=== PATIENT | male | born 1960 | race Caucasian/White ===

== ENCOUNTER 2018-03-11 20:03 | Emergency (ER) | payer MEDICAID ==
[~2018-03-11] VITALS: Ht 180.3 cm; Wt 95.2 kg
[~2018-03-11 20:03] MED LIST: NO HOME MEDS
[2018-03-11 20:05] VITALS: BP 133/87
[2018-03-11] MEDS ORDERED: TETanus/Pertussis (Acell)/Diphther VAC/PF (Tdap-Adult) 0.5ml syringe IM ONE (21:50)
== END 2018-03-11 22:12 | disposition home or self-care (01) ==
LOC: ER 20:03
DX: S01.112A Laceration without foreign body of left eyelid and periocular area, initial encounter (principal); I10 Essential (primary) hypertension; K21.9 Gastro-esophageal reflux disease without esophagitis; J45.909 Unspecified asthma, uncomplicated; F12.90 Cannabis use, unspecified, uncomplicated; Y04.2XXA Assault by strike against or bumped into by another person, initial encounter; Y93.89 Activity, other specified; Y92.89 Other specified places as the place of occurrence of the external cause; Y99.8 Other external cause status
CPT/HCPCS: 12013; 90471; 90715; 99283

== ENCOUNTER 2019-04-27 13:09 | Emergency (ER) | payer MEDICAID ==
[~2019-04-27] VITALS: Ht 177.8 cm; Wt 100.0 kg
[2019-04-27 13:52] LABS: BASOPHILS # (AUTO) 0.1 X10'3 (0-0.2); BASOPHILS % (AUTO) 1.3 % (0-1); EOSINOPHILS # (AUTO) 0.1 X10'3 (0-0.9); EOSINOPHILS % (AUTO) 2.2 % (0-6); HEMATOCRIT 42.9 % (42.0-52.0); HEMOGLOBIN 14.9 g/dl (14.0-17.9); LYMPHOCYTES # (AUTO) 1.5 X10'3 (1.1-4.8); LYMPHOCYTES % (AUTO) 27.3 % (21-51); MEAN CORPUSCULAR HEMOGLOBIN 33.6 PG (27.0-31.0); MEAN CORPUSCULAR HGB CONC 34.7 g/dL (33.0-36.5); MEAN CORPUSCULAR VOLUME 96.9 FL (78-98); MEAN PLATELET VOLUME 7.6 FL (7.4-10.4); MONOCYTES # (AUTO) 0.3 X10'3 (0-0.9); MONOCYTES % (AUTO) 4.7 % (2-12); NEUTROPHILS # (AUTO) 3.5 X10'3 (1.8-7.7); NEUTROPHILS % (AUTO) 64.5 % (42-75); PLATELET COUNT 98 X10'3 (140-440); RED BLOOD COUNT 4.43 X10'6 (4.70-6.10); RED CELL DISTRIBUTION WIDTH 13.6 % (11.5-14.5); WHITE BLOOD COUNT 5.4 X10'3 (4.5-11.0)
[2019-04-27 14:17] LABS: ALANINE AMINOTRANSFERASE 138 U/L (12-78); ALBUMIN 3.9 G/DL (3.4-5.0); ALKALINE PHOSPHATASE 172 IU/L (46-116); ANION GAP 12 (8-16); ASPARTATE AMINO TRANSFERASE 187 U/L (10-37); BILIRUBIN,TOTAL 0.9 MG/DL (0.1-1.0); BLOOD UREA NITROGEN 7 MG/DL (7-18); CALCIUM 8.9 MG/DL (8.5-10.1); CHLORIDE 103 MMOL/L (99-107); CREATININE 0.88 MG/DL (0.60-1.10); GLUCOSE 125 MG/DL (70-104); LIPASE 70 U/L (73-393); POTASSIUM 3.7 MMOL/L (3.5-5.1); SODIUM 140 MMOL/L (135-145); TOTAL CARBON DIOXIDE 24.7 MMOL/L (24-32); TOTAL PROTEIN 7.7 G/DL (6.4-8.2); eGFR 89 ML/MIN
[2019-04-27 15:54] LABS: PARTIAL THROMBOPLASTIN TIME 30 SECONDS (22-32)
[2019-04-27] MEDS ORDERED: ondansetron/PF 4mg/2ml inj IV ONE (16:30)
[2019-04-27] MEDS ORDERED: pantoprazole 40 MG vial IV ONE (16:30)
[2019-04-27] MEDS ORDERED: LORazepam 2 mg/ml vial IV ONE (16:30)
[2019-04-27] MEDS ORDERED: morphine 4 MG/ML inj SYRINge IV ONE (16:30)
[2019-04-27 16:32] LABS: CLARITY,URINE SLIGHTLY CLOUDY (Clear); COLOR,URINE DARK YELLOW (Yellow); GLUCOSE, URINE NEGATIVE (Neg); KETONES,URINE NEGATIVE (Neg); LEUKOCYTE ESTERASE ,URINE TRACE (Neg); NITRITES, URINE NEGATIVE (Neg); OCCULT BLOOD,URINE NEGATIVE (Neg); PROTEIN,URINE TRACE mg/dl (Neg); UA COLLECTION TYPE CLN CATCH MIDSTREAM
[2019-04-27 16:45] LABS: MUCUS STRANDS MODERATE /LPF (Neg); SQUAMOUS EPITHELIAL CELL,UR FEW /LPF (FEW)
[2019-04-27 16:46] LABS: BACTERIA,URINE FEW /HPF (Neg)
[2019-04-27 16:47] LABS: RBC,URINE 0-2 /HPF (0-2); WBC,URINE 0-4 /HPF (0-4)
[2019-04-27 17:50] LABS: ETHANOL 0.303 GM/DL (0.0-0.010)
[2019-04-27] MEDS ORDERED: normal saline 1000ML IV soln IVB ONE (18:45)
[2019-04-27] MEDS ORDERED: RANI-366 PO (20:11)
[2019-04-27] MEDS ORDERED: DOXY100C43 PO (20:11)
[2019-04-27 20:30] VITALS: BP 134/84
== END 2019-04-27 20:39 | disposition home or self-care (01) ==
LOC: ER 13:10
DX: R10.84 Generalized abdominal pain (principal); I86.8 Varicose veins of other specified sites; R16.1 Splenomegaly, not elsewhere classified; F10.10 Alcohol abuse, uncomplicated; K76.6 Portal hypertension; K70.0 Alcoholic fatty liver; I10 Essential (primary) hypertension; J44.9 Chronic obstructive pulmonary disease, unspecified; K21.9 Gastro-esophageal reflux disease without esophagitis; F17.200 Nicotine dependence, unspecified, uncomplicated; F12.90 Cannabis use, unspecified, uncomplicated; Z79.899 Other long term (current) drug therapy; Y90.0 Blood alcohol level of less than 20 mg/100 ml
CPT/HCPCS: 36415; 74176; 80053; 80320; 81001; 83690; 85025; 85610; 85730; 87077; 87088; 87186; 96374; 96375; 99284; C9113; J2060; J2270; J2405; J7030

== ENCOUNTER 2020-05-29 09:54 | Day surgery (SDC) | payer MEDICAID ==
[2020-05-21 12:36] LABS: PRE OP INR 1.1 INR; PRE OP PROTIME 10.9 SECONDS (9.0-12.0)
[2020-05-21 12:40] LABS: ALBUMIN 4.1 G/DL (3.4-5.0); ALBUMIN/GLOBULIN RATIO 1.1 (1.1-1.5); ALKALINE PHOSPHATASE 129 IU/L (46-116); BLOOD UREA NITROGEN 16 MG/DL (7-18); BUN/CREATININE RATIO 15.5 (5.4-32.0); CALCIUM 9.9 MG/DL (8.5-10.1); CHLORIDE 101 MMOL/L (99-107); CREATININE 1.03 MG/DL (0.60-1.10); PRE OP ANION GAP 8 (8-16); PRE OP AST 51 U/L (10-37); PRE OP BILIRUB, TOTAL 0.6 MG/DL (0.0-1.0); PRE OP GLUCOSE 85 MG/DL (70-104); PRE OP POTASSIUM 3.5 MMOL/L (3.4-5.1); PRE OP SODIUM 139 MMOL/L (135-145); TOTAL CARBON DIOXIDE 29.6 MMOL/L (24-32); TOTAL PROTEIN 7.9 G/DL (6.4-8.2); eGFR 74 ML/MIN
[2020-05-21 12:41] LABS: PRE OP ALT 92 U/L (30-65)
[2020-05-21 12:45] LABS: BASOPHILS # (AUTO) 0.1 X10'3 (0-0.2); BASOPHILS % (AUTO) 1.3 % (0-1); EOSINOPHILS # (AUTO) 0.2 X10'3 (0-0.9); EOSINOPHILS % (AUTO) 4.2 % (0-6); LYMPHOCYTES # (AUTO) 1.4 X10'3 (1.1-4.8); LYMPHOCYTES % (AUTO) 33.2 % (21-51); MEAN CORPUSCULAR HEMOGLOBIN 32.7 PG (27.0-31.0); MEAN CORPUSCULAR HGB CONC 34.1 g/dL (33.0-36.5); MEAN PLATELET VOLUME 8.9 FL (7.4-10.4); MONOCYTES # (AUTO) 0.5 X10'3 (0-0.9); MONOCYTES % (AUTO) 11.2 % (2-12); NEUTROPHILS # (AUTO) 2.1 X10'3 (1.8-7.7); NEUTROPHILS % (AUTO) 50.1 % (42-75); PRE OP HEMATOCRIT 49.8 % (42.0-52.0); PRE OP PLATELET COUNT 160 X10'3 (140-440); RED BLOOD COUNT 5.19 X10'6 (4.70-6.10); RED CELL DISTRIBUTION WIDTH 12.1 % (11.5-14.5)
[~2020-05-29] VITALS: Ht 177.8 cm; Wt 105.0 kg
[2020-05-29] VITALS (7 sets, daily range): BP systolic 131–174; BP diastolic 86–110
[~2020-05-29 09:54] MED LIST changes: +ALBU90AE INH; +HYDR25TA4 PO; +MELO-100 PO; -NO HOME MEDS; +TIZA4TAB5 PO; +UMEC1DIS INH; +VENL37.589 PO; +albuterol 2.5 MG/3 ML nebule NEB ONE; +ceFAZolin 2gm in dextrose, iso 50 ML IV ONE; +famotidine 20mg tablet PO ONE; +ringers solution, lacted 1,000 ML IV SCH; +vancomycin 1,500 MG in NS 300ml IV soln IV ONE
[2020-05-29] MEDS ORDERED: BUPIVAcaine/PF 2.5 mg/ml (0.25%) 30ml vial ONE (12:02)
[2020-05-29] MEDS ORDERED: triamcinolone acetonide 40mg/ml inj ONE (12:02)
[2020-05-29] MEDS ORDERED: sevoflurane 250ml liquid IH ONE (12:18)
[2020-05-29] MEDS ORDERED: fentaNYL/PF 50MCG/1 ML 2ML syringe ONE (12:30)
[2020-05-29] MEDS ORDERED: midazolam 2 mg/2 ml injection ONE (12:30)
[2020-05-29] MEDS ORDERED: ondansetron/PF 4mg/2ml inj ONE ×2 (12:42→12:53)
[2020-05-29] MEDS ORDERED: LIDOcaine 2% (20mg/ml) 5ml vial ONE (12:53)
[2020-05-29] MEDS ORDERED: dexamethasone sod phosphate 4mg/ml inj. ONE (12:53)
[2020-05-29] MEDS ORDERED: metoclopramide 5 mg/ml inj ONE (12:53)
[2020-05-29] MEDS ORDERED: propofol inj 20 ML IV ONE (12:53)
[2020-05-29] MEDS ORDERED: proCHLORperazine 10 MG/2 ml inj IV PRN (13:00)
[2020-05-29] MEDS ORDERED: acetaminophen 1,000mg/100ml IV 100 ML IV PRN (13:00)
[2020-05-29] MEDS ORDERED: morphine 4 MG/ML inj SYRINge IV PRN (13:00)
[2020-05-29] MEDS ORDERED: ringers solution, lacted 1,000 ML IV SCH (13:00)
[2020-05-29] MEDS ORDERED: labetalol 20mg/4ml (5mg/ml) syringe IV PRN (13:00)
[2020-05-29] MEDS ORDERED: hydrALAZINE 20mg/ml inj. IV PRN (13:00)
[2020-05-29] MEDS ORDERED: HYDROmorphone/PF 0.2 MG/ML SYRINGE IV PRN ×2 (13:00)
[2020-05-29] MEDS ORDERED: ondansetron/PF 4mg/2ml inj IV PRN (13:00)
[2020-05-29] MEDS ORDERED: morphine 2 MG/ML inj. syringe IV PRN (13:00)
[2020-05-29] MEDS ORDERED: morphine 10mg/ml inj. ONE (13:55)
--- NOTE | 2020-05-29 14:03 | NUR ---
Received from OR via , accompanied by Anesthesiologist DR HICKMAN and report given by Anesthesiolgist. AWAKENS TO VOICE. VITALS STABLE. DRESSING DI. TRIP PAIN.
--- NOTE | 2020-05-29 14:13 | NUR ---
AWAKE AND ORIENTED. VITALS STABLE. DRESSING DI. TRIP PAIN. HOME WITH A FRIEND AT THIS TIME.
--- NOTE | 2020-05-29 15:13 | NUR ---
WRONG TIME WAS USED ON LAST NURSE NOTE SHOULD BE 1513 NOT 1413.
== END 2020-05-29 15:13 | disposition home or self-care (01) ==
LOC: PAS 09:54
PROVIDERS: ATTEND Orthopaedic Surgery
DX: S83.231A Complex tear of medial meniscus, current injury, right knee, initial encounter (principal); M17.11 Unilateral primary osteoarthritis, right knee; M25.561 Pain in right knee; Z79.01 Long term (current) use of anticoagulants; Z79.899 Other long term (current) drug therapy; Z20.822 Contact with and (suspected) exposure to COVID-19; X58.XXXA Exposure to other specified factors, initial encounter; Y93.89 Activity, other specified; Y92.89 Other specified places as the place of occurrence of the external cause; Y99.8 Other external cause status
CPT/HCPCS: 29873; 29879; 29880; 36415; 71046; 80053; 82948; 85025; 85610; 85730; 87635; 94640; 94760; J1100; J2001; J2250; J2270; J2405; J2704; J2765; J3010; J3301; J3370; J3490; J7040; A4215; A4618; A6250; A6449; A7000; J7120

== ENCOUNTER 2021-11-23 17:16 | Emergency (ER) | payer MEDICAID ==
[~2021-11-23] VITALS: Ht 180.3 cm; Wt 106.8 kg
[~2021-11-23 17:16] MED LIST changes: +TIZA-205 PO; -TIZA4TAB5 PO; -albuterol 2.5 MG/3 ML nebule NEB ONE; -ceFAZolin 2gm in dextrose, iso 50 ML IV ONE; -famotidine 20mg tablet PO ONE; -ringers solution, lacted 1,000 ML IV SCH; -vancomycin 1,500 MG in NS 300ml IV soln IV ONE
[2021-11-23 17:18] VITALS: BP 138/98
[2021-11-23] MEDS ORDERED: erythromycin ophthalmic ointment 1gm tube EACHEYE ONE (18:10)
[2021-11-23] MEDS ORDERED: normal saline 1000ml 1,000 ML IV ONE ×2 (18:10→18:45)
[2021-11-23 18:47] LABS: ALANINE AMINOTRANSFERASE 41 U/L (12-78); ALBUMIN 2.4 G/DL (3.4-5.0); ALBUMIN/GLOBULIN RATIO 0.6 (1.1-1.5); ALKALINE PHOSPHATASE 246 IU/L (46-116); ANION GAP 9 (8-16); ASPARTATE AMINO TRANSFERASE 114 U/L (10-37); BILIRUBIN,TOTAL 1.6 MG/DL (0.1-1.0); BLOOD UREA NITROGEN 4 MG/DL (7-18); BUN/CREATININE RATIO 5.9 (5.4-32.0); CALCIUM 7.7 MG/DL (8.5-10.1); CHLORIDE 105 MMOL/L (99-107); CREATININE 0.68 MG/DL (0.60-1.10); GLUCOSE 135 MG/DL (70-104); LIPASE 59 U/L (73-393); POTASSIUM 3.1 MMOL/L (3.5-5.1); SODIUM 137 MMOL/L (135-145); TOTAL CARBON DIOXIDE 23.4 MMOL/L (24-32); TOTAL PROTEIN 6.5 G/DL (6.4-8.2); eGFR > 90 ML/MIN
[2021-11-23 18:49] LABS: BASOPHILS # (AUTO) 0.1 X10'3 (0-0.2); BASOPHILS % (AUTO) 1.1 % (0-1); EOSINOPHILS # (AUTO) 0.1 X10'3 (0-0.9); EOSINOPHILS % (AUTO) 1.8 % (0-6); HEMATOCRIT 38.1 % (42.0-52.0); LYMPHOCYTES # (AUTO) 0.9 X10'3 (1.1-4.8); LYMPHOCYTES % (AUTO) 12.9 % (21-51); MEAN CORPUSCULAR HEMOGLOBIN 35.6 PG (27.0-31.0); MEAN CORPUSCULAR HGB CONC 34.1 g/dL (33.0-36.5); MEAN CORPUSCULAR VOLUME 104.3 FL (78-98); MEAN PLATELET VOLUME 7.3 FL (7.4-10.4); MONOCYTES # (AUTO) 0.5 X10'3 (0-0.9); MONOCYTES % (AUTO) 6.7 % (2-12); NEUTROPHILS # (AUTO) 5.6 X10'3 (1.8-7.7); NEUTROPHILS % (AUTO) 77.5 % (42-75); PLATELET COUNT 124 X10'3 (140-440); RED BLOOD COUNT 3.66 X10'6 (4.70-6.10); RED CELL DISTRIBUTION WIDTH 14.9 % (11.5-14.5); WHITE BLOOD COUNT 7.2 X10'3 (4.5-11.0)
[2021-11-23] MEDS ORDERED: potassium Cl 20 mEq SR tablet PO ONE (19:05)
[2021-11-23] MEDS ORDERED: ERYT1OIN6 EACHEYE (19:16)
== END 2021-11-23 20:29 | disposition home or self-care (01) ==
LOC: ER 17:17
DX: E86.0 Dehydration (principal); H10.31 Unspecified acute conjunctivitis, right eye; I10 Essential (primary) hypertension; J44.9 Chronic obstructive pulmonary disease, unspecified; K21.9 Gastro-esophageal reflux disease without esophagitis; F12.90 Cannabis use, unspecified, uncomplicated
CPT/HCPCS: 36415; 80053; 83690; 85025; 93005; 96360; 96361; 99284; J7030

== ENCOUNTER 2021-12-16 09:30 | Emergency (ER) | payer MEDICAID ==
[~2021-12-16] VITALS: Ht 180.3 cm; Wt 154.0 kg
[2021-12-16] MEDS ORDERED: normal saline 1000ML IV soln IV ONE (09:35)
[2021-12-16] MEDS ORDERED: ipratropium/albuterol 3ml nebule NEB ONE (09:55)
[2021-12-16 10:02] LABS: BASOPHILS # (AUTO) 0.1 X10'3 (0-0.2); EOSINOPHILS # (AUTO) 0.2 X10'3 (0-0.9); EOSINOPHILS % (AUTO) 2.4 % (0-6); HEMATOCRIT 39.1 % (42.0-52.0); HEMOGLOBIN 13.4 g/dl (14.0-17.9); LYMPHOCYTES # (AUTO) 1.1 X10'3 (1.1-4.8); LYMPHOCYTES % (AUTO) 16.4 % (21-51); MEAN CORPUSCULAR HGB CONC 34.2 g/dL (33.0-36.5); MEAN CORPUSCULAR VOLUME 105.4 FL (78-98); MEAN PLATELET VOLUME 7.6 FL (7.4-10.4); MONOCYTES # (AUTO) 0.4 X10'3 (0-0.9); MONOCYTES % (AUTO) 5.4 % (2-12); NEUTROPHILS # (AUTO) 5.1 X10'3 (1.8-7.7); NEUTROPHILS % (AUTO) 74.8 % (42-75); PLATELET COUNT 94 X10'3 (140-440); RED BLOOD COUNT 3.71 X10'6 (4.70-6.10); RED CELL DISTRIBUTION WIDTH 15.4 % (11.5-14.5); WHITE BLOOD COUNT 6.8 X10'3 (4.5-11.0)
[2021-12-16 10:09] LABS: ALANINE AMINOTRANSFERASE 44 U/L (12-78); ALBUMIN 2.4 G/DL (3.4-5.0); ALBUMIN/GLOBULIN RATIO 0.6 (1.1-1.5); ALKALINE PHOSPHATASE 288 IU/L (46-116); ANION GAP 13 (8-16); ASPARTATE AMINO TRANSFERASE 168 U/L (10-37); BILIRUBIN,TOTAL 1.9 MG/DL (0.1-1.0); BLOOD UREA NITROGEN 5 MG/DL (7-18); BUN/CREATININE RATIO 6.2 (5.4-32.0); CALCIUM 7.6 MG/DL (8.5-10.1); CHLORIDE 105 MMOL/L (99-107); CREATININE 0.81 MG/DL (0.60-1.10); GLUCOSE 143 MG/DL (70-104); POTASSIUM 3.2 MMOL/L (3.5-5.1); SODIUM 142 MMOL/L (135-145); TOTAL CARBON DIOXIDE 24.3 MMOL/L (24-32); TOTAL PROTEIN 6.7 G/DL (6.4-8.2); eGFR > 90 ML/MIN
[2021-12-16 10:10] LABS: CREATINE KINASE 105 U/L (39-308); ETHANOL 0.284 GM/DL (0.0-0.010); MAGNESIUM 1.6 MG/DL (1.5-2.4)
[2021-12-16] MEDS ORDERED: thiamine 100mg/ml 2ml inj. IV ONE (10:25)
[2021-12-16] MEDS ORDERED: folic acid 1mg/0.2ml inj IV ONE (10:25)
[2021-12-16 11:21] VITALS: BP 105/58
--- NOTE | 2021-12-16 13:24 | NUR ---
pt attempted to ambulate, unable at this time. provider informed. sandwich and water provided.
== END 2021-12-16 19:49 | disposition home or self-care (01) ==
LOC: ER 09:31
DX: F10.129 Alcohol abuse with intoxication, unspecified (principal); E86.0 Dehydration; E87.6 Hypokalemia; J44.1 Chronic obstructive pulmonary disease with (acute) exacerbation; T67.5XXA Heat exhaustion, unspecified, initial encounter; I10 Essential (primary) hypertension; K21.9 Gastro-esophageal reflux disease without esophagitis; M19.90 Unspecified osteoarthritis, unspecified site; X58.XXXA Exposure to other specified factors, initial encounter; Y93.89 Activity, other specified; Y92.89 Other specified places as the place of occurrence of the external cause; Y99.8 Other external cause status; Y90.9 Presence of alcohol in blood, level not specified
CPT/HCPCS: 36415; 71045; 80053; 80320; 82550; 83735; 85025; 93005; 94640; 94760; 96361; 96374; 96375; 99285; J3411; J3490; J7030

== ENCOUNTER 2022-04-07 12:17 | Inpatient (IN) | payer MEDICAID ==
[~2022-04-07] VITALS: Ht 177.8 cm; Wt 102.0 kg
[2022-04-07 13:08] LABS: BASOPHILS # (AUTO) 0.1 X10'3 (0-0.2); BASOPHILS % (AUTO) 1.1 % (0-1); EOSINOPHILS # (AUTO) 0.1 X10'3 (0-0.9); EOSINOPHILS % (AUTO) 0.9 % (0-6); HEMOGLOBIN 11.5 g/dl (14.0-17.9); LYMPHOCYTES # (AUTO) 1.3 X10'3 (1.1-4.8); LYMPHOCYTES % (AUTO) 12.1 % (21-51); MEAN CORPUSCULAR HEMOGLOBIN 35.1 PG (27.0-31.0); MEAN CORPUSCULAR HGB CONC 33.9 g/dL (33.0-36.5); MEAN CORPUSCULAR VOLUME 103.5 FL (78-98); MONOCYTES # (AUTO) 1.2 X10'3 (0-0.9); MONOCYTES % (AUTO) 11.9 % (2-12); NEUTROPHILS # (AUTO) 7.8 X10'3 (1.8-7.7); PLATELET COUNT 177 X10'3 (140-440); RED BLOOD COUNT 3.28 X10'6 (4.70-6.10); RED CELL DISTRIBUTION WIDTH 16.3 % (11.5-14.5); WHITE BLOOD COUNT 10.5 X10'3 (4.5-11.0)
[2022-04-07 13:10] LABS: ALANINE AMINOTRANSFERASE 34 U/L (12-78); ALBUMIN 2.4 G/DL (3.4-5.0); ALKALINE PHOSPHATASE 153 IU/L (46-116); ANION GAP 11 (8-16); ASPARTATE AMINO TRANSFERASE 107 U/L (10-37); BILIRUBIN,TOTAL 7.9 MG/DL (0.1-1.0); BLOOD UREA NITROGEN 28 MG/DL (7-18); BUN/CREATININE RATIO 19.3 (5.4-32.0); CALCIUM 8.9 MG/DL (8.5-10.1); CHLORIDE 102 MMOL/L (99-107); CREATININE 1.45 MG/DL (0.60-1.10); GLUCOSE 115 MG/DL (70-104); SODIUM 137 MMOL/L (135-145); TOTAL CARBON DIOXIDE 23.6 MMOL/L (24-32); eGFR 49 ML/MIN
[2022-04-07 13:21] LABS: ALBUMIN/GLOBULIN RATIO 0.5 (1.1-1.5); POTASSIUM 3.8 MMOL/L (3.5-5.1); TOTAL PROTEIN 7.4 G/DL (6.4-8.2)
[2022-04-07 15:32] LABS: APTT 31 SECONDS (22-32)
[2022-04-07 16:12] LABS: MAGNESIUM 1.7 MG/DL (1.5-2.4)
[2022-04-07] MEDS ORDERED: LIDOCAINE 1%/EPI 1:100,000 inj. 10 ML multi-dose vial SQ ONE (17:20)
--- NOTE | 2022-04-07 20:30 | NUR ---
Buttermaker agrees with More Lyons, MIRA assessment.
[2022-04-07] MEDS ORDERED: albumin (human) 25% 100 ML IV solution IV ONE (20:35)
[2022-04-08 00:23] LABS: LDH,BODY FLUID 75 U/L
[2022-04-08 00:24] LABS: ALBUMIN,BODY FLUID < 0.6 G/DL; TOTAL PROTEIN,BODY FLUID < 2.0 G/DL
[2022-04-08 00:30] LABS: GLUCOSE,BODY FLUID 121 MG/DL; LDH,BODY FLUID 69 U/L
[2022-04-08] MEDS ORDERED: mag hydrox/Alum hydrox/simeth 30ml oral suspension PO PRN (00:35)
[2022-04-08] MEDS ORDERED: magnesium hydroxide 30ml (MOM) UD suspension PO PRN (00:35)
[2022-04-08] MEDS ORDERED: ondansetron/PF 4mg/2ml inj IV PRN (00:35)
[2022-04-08] MEDS ORDERED: acetaminophen 325mg tablet PO PRN ×2 (00:35)
[2022-04-08] MEDS ORDERED: morphine 2 MG/ML inj. syringe IV PRN ×2 (00:35)
[2022-04-08 00:40] LABS: ALBUMIN,BODY FLUID 0.6 G/DL; CHOLESTEROL,BODY FLUID 34 MG/DL; TOTAL PROTEIN,BODY FLUID < 2.0 G/DL
--- NOTE | 2022-04-08 01:23 | NUR ---
unable to obtain urine currently as pt has sob
[2022-04-08 01:39] LABS: BF WBC COUNT 73 /CU MM (0-1000); BFAPPEAR HAZY; BFCOLOR YELLOW; BFVOLUME 100 ML
[2022-04-08 01:40] LABS: BF MESOTHELIAL CELLS FEW; BF RBC COUNT 1335 /CU MM; LYMPHOCYTES,BODY FLUID 44 %; MONOCYTES,BODY FLUID 54 %; NEUTROPHILS,BODY FLUID 2 %
[2022-04-08 01:56] LABS: BFAPPEAR CLOUDY
[2022-04-08 01:57] LABS: BF WBC COUNT 255 /CU MM (0-1000); BFCOLOR YELLOW; BFVOLUME 180 ML
[2022-04-08 01:58] LABS: BF RBC COUNT 1225 /CU MM; LYMPHOCYTES,BODY FLUID 49 %; NEUTROPHILS,BODY FLUID 6 %
[2022-04-08 01:59] LABS: MONOCYTES,BODY FLUID 45 %
[2022-04-08 02:04] LABS: ALANINE AMINOTRANSFERASE 25 U/L (12-78); ALBUMIN 2.4 G/DL (3.4-5.0); ALKALINE PHOSPHATASE 104 IU/L (46-116); ANION GAP 8 (8-16); ASPARTATE AMINO TRANSFERASE 81 U/L (10-37); BILIRUBIN,TOTAL 8.1 MG/DL (0.1-1.0); BLOOD UREA NITROGEN 32 MG/DL (7-18); BUN/CREATININE RATIO 19.9 (5.4-32.0); CALCIUM 8.7 MG/DL (8.5-10.1); CHLORIDE 102 MMOL/L (99-107); CREATININE 1.61 MG/DL (0.60-1.10); GLUCOSE 133 MG/DL (70-104); POTASSIUM 3.6 MMOL/L (3.5-5.1); SODIUM 136 MMOL/L (135-145); TOTAL CARBON DIOXIDE 25.6 MMOL/L (24-32); eGFR 44 ML/MIN
[2022-04-08 02:20] LABS: BASOPHILS % (AUTO) 0.8 % (0-1); EOSINOPHILS % (AUTO) 0.4 % (0-6); HEMATOCRIT 27.5 % (42.0-52.0); HEMOGLOBIN 9.5 g/dl (14.0-17.9); LYMPHOCYTES # (AUTO) 0.7 X10'3 (1.1-4.8); LYMPHOCYTES % (AUTO) 12.4 % (21-51); MEAN CORPUSCULAR HEMOGLOBIN 35.8 PG (27.0-31.0); MEAN CORPUSCULAR HGB CONC 34.6 g/dL (33.0-36.5); MEAN CORPUSCULAR VOLUME 103.6 FL (78-98); MEAN PLATELET VOLUME 7.1 FL (7.4-10.4); MONOCYTES # (AUTO) 0.6 X10'3 (0-0.9); MONOCYTES % (AUTO) 9.9 % (2-12); NEUTROPHILS # (AUTO) 4.4 X10'3 (1.8-7.7); NEUTROPHILS % (AUTO) 76.5 % (42-75); PLATELET COUNT 90 X10'3 (140-440); RED BLOOD COUNT 2.66 X10'6 (4.70-6.10); RED CELL DISTRIBUTION WIDTH 15.7 % (11.5-14.5); WHITE BLOOD COUNT 5.8 X10'3 (4.5-11.0)
[2022-04-08 02:32] LABS: ALBUMIN/GLOBULIN RATIO 0.7 (1.1-1.5); TOTAL PROTEIN 5.7 G/DL (6.4-8.2)
[2022-04-08] MEDS: lactulose 20gm/30ml cup PO SCH ×4 (03:08→20:21)
[2022-04-08 06:17] LABS: GLUCOSE, URINE NEGATIVE (Neg); KETONES,URINE TRACE mg/dl (Neg); LEUKOCYTE ESTERASE ,URINE TRACE (Neg); NITRITES, URINE NEGATIVE (Neg); OCCULT BLOOD,URINE NEGATIVE (Neg); PROTEIN,URINE NEGATIVE (Neg); UROBILINOGEN,URINE >=8.0 E.U/dL (0.2-1.0)
[2022-04-08 06:18] LABS: CLARITY,URINE SLIGHTLY CLOUDY (Clear); COLOR,URINE AMBER (Yellow); UA COLLECTION TYPE VOIDED
[2022-04-08 06:19] LABS: BACTERIA,URINE 4+ /HPF (Neg); RBC,URINE NONE SEEN /HPF (0-2)
[2022-04-08 06:20] LABS: HYALINE CASTS 0-3 /LPF (NEGATIVE); MUCUS STRANDS NONE SEEN /LPF (Neg); SQUAMOUS EPITHELIAL CELL,UR FEW /LPF (FEW)
[2022-04-08 06:21] LABS: WBC,URINE 30-50 /HPF (0-4)
[2022-04-08 08:04] VITALS: BP 126/75
[2022-04-08] MEDS: docusate sod 100mg capsule PO SCH ×2 (09:45→20:21)
[2022-04-08 11:32] VITALS: BP 122/66
[2022-04-08] MEDS ORDERED: PERFLUTREN PROTEIN-A MICROSPHR (Optison) 0.22 MG/ML 3ML VIAL IV ONE (12:25)
[2022-04-08] MEDS ORDERED: NO HOME MEDS (13:11)
[2022-04-08 14:13] LABS: HDL CHOLESTEROL 35 MG/DL (35-60); LDL CHOLESTEROL 64 MG/DL (50-100)
[2022-04-08 14:16] LABS: CHOL/HDL RATIO 3.6 (0.00-4.99); CHOLESTEROL 125 MG/DL (0-200); FERRITIN 1296 NG/ML (26-388); TRIGLYCERIDES 91 MG/DL (20-135)
[2022-04-08 14:21] LABS: % IRON SATURATION 84 % (11-46); IRON 87 UG/DL (53-167); TOTAL IRON BINDING CAPACITY 103 UG/DL (259-388)
[2022-04-08] MEDS: furosemide 40mg/4ml inj IV SCH ×2 (14:41→20:21)
[2022-04-08] MEDS: folic acid 1mg tablet PO SCH (14:44)
[2022-04-08 15:43] VITALS: BP 128/71
[2022-04-08 18:00] VITALS: BP 110/56
--- NOTE | 2022-04-08 18:30 | NUR ---
Problems reprioritized. Patient report given, questions answered & plan of care reviewed with ALLAN OMALLEY.
--- NOTE | 2022-04-08 18:30 | NUR ---
Patient in room PCU 3014. I have received report from ALLAN Jang and had the opportunity to ask questions and assume patient care.
[2022-04-08] MEDS: thiamine 100mg tablet PO SCH (20:21)
[2022-04-08] MEDS ORDERED: CefTRIAXone/D5W-Rocephin 1gm 50 ML IV ONE (21:30)
[2022-04-08 22:00] VITALS: BP 102/56
[2022-04-08] MEDS: albuterol 2.5 MG/3 ML nebule NEB PRN (23:15)
[2022-04-09 02:00] VITALS: BP 111/57
[2022-04-09] MEDS: lactulose 20gm/30ml cup PO SCH ×5 (02:00→20:28)
[2022-04-09 06:00] VITALS: BP 94/61
--- NOTE | 2022-04-09 06:45 | NUR ---
Problems reprioritized. Patient report given, questions answered & plan of care reviewed with ALLAN Guerrero.
[2022-04-09] MEDS: albuterol 2.5 MG/3 ML nebule NEB PRN (07:41)
[2022-04-09] MEDS: folic acid 1mg tablet PO SCH (08:00)
[2022-04-09] MEDS: docusate sod 100mg capsule PO SCH ×2 (08:00→20:29)
[2022-04-09] MEDS: thiamine 100mg tablet PO SCH ×2 (08:00→20:29)
[2022-04-09] MEDS: multivitamins, therapeutics tablet PO SCH (08:00)
[2022-04-09] MEDS: furosemide 40mg/4ml inj IV SCH ×2 (08:00→20:29)
[2022-04-09 08:07] LABS: BASOPHILS % (AUTO) 0.8 % (0-1); EOSINOPHILS # (AUTO) 0.1 X10'3 (0-0.9); EOSINOPHILS % (AUTO) 0.9 % (0-6); HEMATOCRIT 30.9 % (42.0-52.0); HEMOGLOBIN 10.7 g/dl (14.0-17.9); LYMPHOCYTES # (AUTO) 0.9 X10'3 (1.1-4.8); LYMPHOCYTES % (AUTO) 15.5 % (21-51); MEAN CORPUSCULAR HEMOGLOBIN 35.9 PG (27.0-31.0); MEAN CORPUSCULAR HGB CONC 34.7 g/dL (33.0-36.5); MEAN CORPUSCULAR VOLUME 103.5 FL (78-98); MEAN PLATELET VOLUME 7.5 FL (7.4-10.4); MONOCYTES # (AUTO) 0.6 X10'3 (0-0.9); MONOCYTES % (AUTO) 10.7 % (2-12); NEUTROPHILS # (AUTO) 4.2 X10'3 (1.8-7.7); NEUTROPHILS % (AUTO) 72.1 % (42-75); PLATELET COUNT 87 X10'3 (140-440); RED BLOOD COUNT 2.99 X10'6 (4.70-6.10); WHITE BLOOD COUNT 5.8 X10'3 (4.5-11.0)
[2022-04-09 08:27] LABS: ALANINE AMINOTRANSFERASE 25 U/L (12-78); ALBUMIN 2.1 G/DL (3.4-5.0); ALKALINE PHOSPHATASE 99 IU/L (46-116); ANION GAP 6 (8-16); ASPARTATE AMINO TRANSFERASE 87 U/L (10-37); BILIRUBIN,TOTAL 9.5 MG/DL (0.1-1.0); BLOOD UREA NITROGEN 35 MG/DL (7-18); BUN/CREATININE RATIO 19.1 (5.4-32.0); CALCIUM 8.4 MG/DL (8.5-10.1); CHLORIDE 100 MMOL/L (99-107); CREATININE 1.83 MG/DL (0.60-1.10); GLUCOSE 117 MG/DL (70-104); POTASSIUM 3.5 MMOL/L (3.5-5.1); SODIUM 133 MMOL/L (135-145); TOTAL CARBON DIOXIDE 26.7 MMOL/L (24-32); eGFR 38 ML/MIN
[2022-04-09 08:32] LABS: ALBUMIN/GLOBULIN RATIO 0.6 (1.1-1.5); TOTAL PROTEIN 5.5 G/DL (6.4-8.2)
[2022-04-09] MEDS: HYDROcodone/acetaminophen 5mg/325mg tablet PO PRN (09:27)
[2022-04-09 11:55] VITALS: BP 96/60
--- NOTE | 2022-04-09 11:56 | NUR ---
Nutrition Consult: Pt admit DX etoh cirrhosis, R pleural effusion, afib, hepatic encephalopathy, hypoalbuminemia secondary to end-stage liver disease, and ascites per EMR. Pt s/p thoracentesis -4.4L and paracentesis -7.3L removal w/ hx homeless and heavy etoh receiving routine thiamine, folic acid, MVI, and lactulose per EMR. PO 0-25% vs refusing initial heart healthy meals though noted nausea and abdominal pain persists per EMR; likely impacting PO trends. Pt reports no wt loss or decreased intake SENIOR BUSINESS PROCESS ANALYST per RN Malnutrition Screen. LBM 04/09. If pt PO remains poor following resolution of GI symptoms may benefit from ONS to assist meeting needs. Will monitor for nutrition intervention needs this admit. Addendum: 04/09/22 at [address] Amended: Links added.
[2022-04-09] MEDS ORDERED: NORMAL SALINE IV ONE (13:15)
[2022-04-09] MEDS ORDERED: SINCALIDE IV ONE (13:15)
[2022-04-09 14:31] VITALS: BP 100/55
[2022-04-09 18:00] VITALS: BP 167/79
--- NOTE | 2022-04-09 18:30 | NUR ---
Patient in room PCU 3014. I have received report from ALLAN Jang and had the opportunity to ask questions and assume patient care.
--- NOTE | 2022-04-09 18:37 | NUR ---
Problems reprioritized. Patient report given, questions answered & plan of care reviewed with ALLAN OMALLEY.
[2022-04-09] MEDS: CefTRIAXone/D5W-Rocephin 1gm 50 ML IV SCH (20:29)
[2022-04-09 22:00] VITALS: BP 93/54
[2022-04-10 02:00] VITALS: BP 91/49
[2022-04-10] MEDS: lactulose 20gm/30ml cup PO SCH ×4 (02:03→19:52)
[2022-04-10 06:00] VITALS: BP 84/46
--- NOTE | 2022-04-10 06:34 | NUR ---
Problems reprioritized. Patient report given, questions answered & plan of care reviewed with ALLAN Dias.
[2022-04-10 07:03] LABS: BASOPHILS % (AUTO) 0.6 % (0-1); EOSINOPHILS # (AUTO) 0.1 X10'3 (0-0.9); EOSINOPHILS % (AUTO) 2.3 % (0-6); HEMATOCRIT 29.2 % (42.0-52.0); HEMOGLOBIN 9.9 g/dl (14.0-17.9); LYMPHOCYTES % (AUTO) 17.3 % (21-51); MEAN CORPUSCULAR HEMOGLOBIN 35.4 PG (27.0-31.0); MEAN CORPUSCULAR HGB CONC 33.9 g/dL (33.0-36.5); MEAN CORPUSCULAR VOLUME 104.5 FL (78-98); MEAN PLATELET VOLUME 7.7 FL (7.4-10.4); MONOCYTES # (AUTO) 0.6 X10'3 (0-0.9); MONOCYTES % (AUTO) 11.2 % (2-12); NEUTROPHILS # (AUTO) 3.8 X10'3 (1.8-7.7); NEUTROPHILS % (AUTO) 68.6 % (42-75); PLATELET COUNT 77 X10'3 (140-440); RED CELL DISTRIBUTION WIDTH 16.3 % (11.5-14.5); WHITE BLOOD COUNT 5.5 X10'3 (4.5-11.0)
[2022-04-10 07:09] LABS: HBSAG SCREEN Negative (Negative); HEP A AB, IGM Negative (Negative)
[2022-04-10] MEDS: multivitamins, therapeutics tablet PO SCH (07:39)
[2022-04-10] MEDS: thiamine 100mg tablet PO SCH ×2 (07:39→19:52)
[2022-04-10] MEDS: folic acid 1mg tablet PO SCH (07:39)
[2022-04-10] MEDS: docusate sod 100mg capsule PO SCH ×2 (08:00→19:52)
[2022-04-10 08:29] LABS: ALANINE AMINOTRANSFERASE 22 U/L (12-78); ALBUMIN 2.1 G/DL (3.4-5.0); ALKALINE PHOSPHATASE 99 IU/L (46-116); ANION GAP 7 (8-16); ASPARTATE AMINO TRANSFERASE 74 U/L (10-37); BILIRUBIN,TOTAL 7.2 MG/DL (0.1-1.0); BLOOD UREA NITROGEN 40 MG/DL (7-18); BUN/CREATININE RATIO 18.7 (5.4-32.0); CALCIUM 8.6 MG/DL (8.5-10.1); CHLORIDE 100 MMOL/L (99-107); CREATININE 2.14 MG/DL (0.60-1.10); GLUCOSE 110 MG/DL (70-104); POTASSIUM 3.3 MMOL/L (3.5-5.1); SODIUM 133 MMOL/L (135-145); TOTAL CARBON DIOXIDE 26.4 MMOL/L (24-32); eGFR 31 ML/MIN
[2022-04-10 08:30] LABS: ALBUMIN/GLOBULIN RATIO 0.6 (1.1-1.5); TOTAL PROTEIN 5.6 G/DL (6.4-8.2)
--- NOTE | 2022-04-10 11:35 | NUR ---
assisting aiyana Pollsb Kemar chapin with HIDA scan, medication infusing via pump per protocol, pt is tolerating well
[2022-04-10 12:00] VITALS: BP 88/44
--- NOTE | 2022-04-10 13:30 | NUR ---
Dr. Bentley at the bedside speaking with patient and family. Answering all questions. Pt able to eat now.
[2022-04-10 15:00] VITALS: BP 96/49
[2022-04-10 18:00] VITALS: BP 92/42
--- NOTE | 2022-04-10 18:00 | NUR ---
Patient in room PCU 3014. I have received report from kimberly Dias and had the opportunity to ask questions and assume patient care.
[2022-04-10] MEDS: CefTRIAXone/D5W-Rocephin 1gm 50 ML IV SCH (19:52)
[2022-04-10] MEDS ORDERED: potassium Cl 20 mEq SR tablet PO PRN (20:40)
[2022-04-10] MEDS ORDERED: potassium Cl 40MEQ/1/2NS 520ml 520 ML IV PRN (20:40)
[2022-04-10] MEDS ORDERED: magnesium 4gm in 100ml NS 100 ML IV PRN (20:40)
[2022-04-10] MEDS ORDERED: magnesium Cl slow-release 64mg tablet PO PRN (20:40)
[2022-04-10] MEDS: potassium Cl 20 mEq SR tablet PO PRN (21:17)
[2022-04-10 22:00] VITALS: BP 83/37
[2022-04-11 02:00] VITALS: BP 98/63
[2022-04-11] MEDS: potassium Cl 20 mEq SR tablet PO PRN ×3 (02:20→19:42)
[2022-04-11] MEDS: lactulose 20gm/30ml cup PO SCH ×4 (02:20→19:44)
[2022-04-11 06:00] VITALS: BP 90/50
--- NOTE | 2022-04-11 07:03 | NUR ---
Problems reprioritized. Patient report given, questions answered & plan of care reviewed with ALLAN Kilpatrick.
[2022-04-11 07:17] LABS: BASOPHILS # (AUTO) 0.1 X10'3 (0-0.2); BASOPHILS % (AUTO) 1.2 % (0-1); EOSINOPHILS # (AUTO) 0.2 X10'3 (0-0.9); EOSINOPHILS % (AUTO) 3.4 % (0-6); HEMATOCRIT 26.1 % (42.0-52.0); HEMOGLOBIN 9.1 g/dl (14.0-17.9); LYMPHOCYTES # (AUTO) 0.9 X10'3 (1.1-4.8); MEAN CORPUSCULAR HEMOGLOBIN 35.9 PG (27.0-31.0); MEAN CORPUSCULAR HGB CONC 34.6 g/dL (33.0-36.5); MEAN CORPUSCULAR VOLUME 103.7 FL (78-98); MONOCYTES # (AUTO) 0.7 X10'3 (0-0.9); MONOCYTES % (AUTO) 12.8 % (2-12); NEUTROPHILS # (AUTO) 3.7 X10'3 (1.8-7.7); NEUTROPHILS % (AUTO) 66.6 % (42-75); PLATELET COUNT 83 X10'3 (140-440); RED BLOOD COUNT 2.52 X10'6 (4.70-6.10); RED CELL DISTRIBUTION WIDTH 16.3 % (11.5-14.5); WHITE BLOOD COUNT 5.5 X10'3 (4.5-11.0)
[2022-04-11 08:00] LABS: ALANINE AMINOTRANSFERASE 23 U/L (12-78); ALKALINE PHOSPHATASE 100 IU/L (46-116); ANION GAP 9 (8-16); ASPARTATE AMINO TRANSFERASE 68 U/L (10-37); BILIRUBIN,TOTAL 4.8 MG/DL (0.1-1.0); BLOOD UREA NITROGEN 42 MG/DL (7-18); BUN/CREATININE RATIO 17.5 (5.4-32.0); CALCIUM 8.4 MG/DL (8.5-10.1); CHLORIDE 99 MMOL/L (99-107); GLUCOSE 109 MG/DL (70-104); MAGNESIUM 1.7 MG/DL (1.5-2.4); POTASSIUM 3.3 MMOL/L (3.5-5.1); SODIUM 134 MMOL/L (135-145); TOTAL CARBON DIOXIDE 26.2 MMOL/L (24-32); eGFR 28 ML/MIN
[2022-04-11] MEDS: docusate sod 100mg capsule PO SCH ×2 (08:00→19:45)
[2022-04-11 08:04] LABS: ALBUMIN/GLOBULIN RATIO 0.6 (1.1-1.5); TOTAL PROTEIN 5.5 G/DL (6.4-8.2)
[2022-04-11] MEDS: thiamine 100mg tablet PO SCH ×2 (08:30→19:43)
[2022-04-11] MEDS: multivitamins, therapeutics tablet PO SCH (08:30)
[2022-04-11] MEDS: folic acid 1mg tablet PO SCH (08:30)
[2022-04-11] MEDS: K and/or MAG REPLACEMENT MC SCH ×2 (08:39→20:00)
[2022-04-11 10:45] VITALS: BP 100/58
[2022-04-11] MEDS: albuterol 2.5 MG/3 ML nebule NEB PRN ×2 (10:58→15:10)
--- NOTE | 2022-04-11 11:40 | NUR ---
PAGER ID: [phone] MESSAGE: ALVARADO LEMUS [phone] RE: Hermila BALLARD [id number]. PT C/O INCREASED ABDOMINAL PAIN/SOB
[2022-04-11] MEDS: HYDROcodone/acetaminophen 10/325mg tab PO PRN (14:38)
[2022-04-11 15:30] VITALS: BP 99/51
[2022-04-11 18:00] VITALS: BP 103/55
--- NOTE | 2022-04-11 18:25 | NUR ---
Patient in room PCU 3014. I have received report from ALLAN Kilpatrick and had the opportunity to ask questions and assume patient care. Patient resting comfortably on hospital bed, no concerns at this time.
[2022-04-11] MEDS: CefTRIAXone/D5W-Rocephin 1gm 50 ML IV SCH (19:43)
[2022-04-11] MEDS: albumin (human) 25% 100ml IV 100 ML IV SCH (19:44)
[2022-04-11] MEDS: HYDROcodone/acetaminophen 5mg/325mg tablet PO PRN (19:48)
[2022-04-11 22:00] VITALS: BP 106/52
[2022-04-12] VITALS (12 sets, daily range): BP systolic 89–104; BP diastolic 43–63
[2022-04-12] MEDS: lactulose 20gm/30ml cup PO SCH ×4 (03:06→20:49)
--- NOTE | 2022-04-12 06:23 | NUR ---
Problems reprioritized. Patient report given, questions answered & plan of care reviewed with ALLAN Delgado.
[2022-04-12 06:47] LABS: BASOPHILS % (AUTO) 0.6 % (0-1); EOSINOPHILS # (AUTO) 0.2 X10'3 (0-0.9); EOSINOPHILS % (AUTO) 4.3 % (0-6); HEMATOCRIT 26.6 % (42.0-52.0); HEMOGLOBIN 9.2 g/dl (14.0-17.9); LYMPHOCYTES # (AUTO) 0.7 X10'3 (1.1-4.8); LYMPHOCYTES % (AUTO) 16.9 % (21-51); MEAN CORPUSCULAR HGB CONC 34.6 g/dL (33.0-36.5); MEAN CORPUSCULAR VOLUME 104.1 FL (78-98); MEAN PLATELET VOLUME 7.7 FL (7.4-10.4); MONOCYTES # (AUTO) 0.6 X10'3 (0-0.9); NEUTROPHILS # (AUTO) 2.4 X10'3 (1.8-7.7); NEUTROPHILS % (AUTO) 63.2 % (42-75); PLATELET COUNT 79 X10'3 (140-440); RED BLOOD COUNT 2.55 X10'6 (4.70-6.10); RED CELL DISTRIBUTION WIDTH 16.3 % (11.5-14.5); WHITE BLOOD COUNT 3.9 X10'3 (4.5-11.0)
[2022-04-12 06:54] LABS: ALANINE AMINOTRANSFERASE 25 U/L (12-78); ALBUMIN 2.3 G/DL (3.4-5.0); ALKALINE PHOSPHATASE 103 IU/L (46-116); ANION GAP 8 (8-16); ASPARTATE AMINO TRANSFERASE 70 U/L (10-37); BILIRUBIN,TOTAL 4.5 MG/DL (0.1-1.0); BLOOD UREA NITROGEN 42 MG/DL (7-18); CALCIUM 8.5 MG/DL (8.5-10.1); CHLORIDE 100 MMOL/L (99-107); CREATININE 2.21 MG/DL (0.60-1.10); GLUCOSE 111 MG/DL (70-104); MAGNESIUM 1.8 MG/DL (1.5-2.4); POTASSIUM 3.5 MMOL/L (3.5-5.1); SODIUM 132 MMOL/L (135-145); TOTAL CARBON DIOXIDE 24.5 MMOL/L (24-32); eGFR 30 ML/MIN
[2022-04-12 06:59] LABS: ALBUMIN/GLOBULIN RATIO 0.7 (1.1-1.5); TOTAL PROTEIN 5.7 G/DL (6.4-8.2)
[2022-04-12] MEDS: K and/or MAG REPLACEMENT MC SCH ×2 (08:00→20:00)
[2022-04-12] MEDS: docusate sod 100mg capsule PO SCH ×2 (09:36→20:53)
[2022-04-12] MEDS: multivitamins, therapeutics tablet PO SCH (09:36)
[2022-04-12] MEDS: thiamine 100mg tablet PO SCH ×2 (09:36→20:53)
[2022-04-12] MEDS: folic acid 1mg tablet PO SCH (09:36)
[2022-04-12] MEDS: albumin (human) 25% 100ml IV 100 ML IV SCH ×3 (09:37→20:49)
[2022-04-12] MEDS ORDERED: LIDOcaine 1% 30ml preserv. free vial ONE (09:59)
[2022-04-12] MEDS ORDERED: albumin (human) 25% 100ml IV 100 ML IV ONE (10:45)
[2022-04-12] MEDS: CefTRIAXone/D5W-Rocephin 1gm 50 ML IV SCH (20:50)
[2022-04-12] MEDS: HYDROcodone/acetaminophen 5mg/325mg tablet PO PRN (20:50)
[2022-04-13 02:00] VITALS: BP 100/52
[2022-04-13] MEDS: lactulose 20gm/30ml cup PO SCH ×4 (02:00→19:29)
[2022-04-13 06:00] VITALS: BP 97/55
[2022-04-13 06:42] LABS: BASOPHILS % (AUTO) 1.3 % (0-1); EOSINOPHILS # (AUTO) 0.1 X10'3 (0-0.9); EOSINOPHILS % (AUTO) 4.4 % (0-6); HEMATOCRIT 25.3 % (42.0-52.0); HEMOGLOBIN 8.7 g/dl (14.0-17.9); LYMPHOCYTES # (AUTO) 0.6 X10'3 (1.1-4.8); LYMPHOCYTES % (AUTO) 20.9 % (21-51); MEAN CORPUSCULAR HEMOGLOBIN 35.8 PG (27.0-31.0); MEAN CORPUSCULAR HGB CONC 34.3 g/dL (33.0-36.5); MEAN CORPUSCULAR VOLUME 104.3 FL (78-98); MEAN PLATELET VOLUME 7.6 FL (7.4-10.4); MONOCYTES # (AUTO) 0.4 X10'3 (0-0.9); MONOCYTES % (AUTO) 15.3 % (2-12); NEUTROPHILS # (AUTO) 1.7 X10'3 (1.8-7.7); NEUTROPHILS % (AUTO) 58.1 % (42-75); PLATELET COUNT 73 X10'3 (140-440); RED BLOOD COUNT 2.43 X10'6 (4.70-6.10); RED CELL DISTRIBUTION WIDTH 16.8 % (11.5-14.5); WHITE BLOOD COUNT 2.9 X10'3 (4.5-11.0)
[2022-04-13 06:58] LABS: ALANINE AMINOTRANSFERASE 25 U/L (12-78); ALBUMIN 2.7 G/DL (3.4-5.0); ALKALINE PHOSPHATASE 83 IU/L (46-116); ANION GAP 7 (8-16); ASPARTATE AMINO TRANSFERASE 76 U/L (10-37); BILIRUBIN,TOTAL 3.9 MG/DL (0.1-1.0); BLOOD UREA NITROGEN 40 MG/DL (7-18); BUN/CREATININE RATIO 20.3 (5.4-32.0); CALCIUM 8.8 MG/DL (8.5-10.1); CHLORIDE 100 MMOL/L (99-107); CREATININE 1.97 MG/DL (0.60-1.10); GLUCOSE 111 MG/DL (70-104); MAGNESIUM 1.8 MG/DL (1.5-2.4); POTASSIUM 3.7 MMOL/L (3.5-5.1); SODIUM 133 MMOL/L (135-145); TOTAL CARBON DIOXIDE 26.3 MMOL/L (24-32); eGFR 35 ML/MIN
[2022-04-13 07:07] LABS: TOTAL CELLS COUNTED 100
[2022-04-13 07:08] LABS: ANISOCYTOSIS 1+; PLATELET ESTIMATE DECREASED; TARGET CELLS FEW
[2022-04-13 07:10] LABS: ALBUMIN/GLOBULIN RATIO 0.9 (1.1-1.5); TOTAL PROTEIN 5.7 G/DL (6.4-8.2)
[2022-04-13] MEDS: K and/or MAG REPLACEMENT MC SCH ×2 (08:00→18:57)
[2022-04-13] MEDS: HYDROcodone/acetaminophen 5mg/325mg tablet PO PRN ×2 (08:15→13:58)
[2022-04-13] MEDS: thiamine 100mg tablet PO SCH ×2 (08:18→20:00)
[2022-04-13] MEDS: docusate sod 100mg capsule PO SCH ×2 (08:18→19:32)
[2022-04-13] MEDS: albumin (human) 25% 100ml IV 100 ML IV SCH ×2 (08:18→19:32)
[2022-04-13] MEDS: multivitamins, therapeutics tablet PO SCH (08:18)
[2022-04-13] MEDS: folic acid 1mg tablet PO SCH (08:18)
[2022-04-13 11:06] VITALS: BP 89/44
--- NOTE | 2022-04-13 11:48 | NUR ---
Paged Respiratory, patient is requesting a breathing treatment, he states he feels short of breath. He did just work with PT and walked about 20ft. His 02 saturation is >90% on 3L.
[2022-04-13] MEDS: albuterol 2.5 MG/3 ML nebule NEB PRN (11:56)
--- NOTE | 2022-04-13 12:48 | NUR ---
Met with patient in regards to alcohol use and to see if patient was interested in resources for treatment options. Patient is interested in inpatient and outpatient resources. I talked to patient about him calling [facility] and starting that process. Gave patient a list of facilities and my card to call me with any questions.
--- NOTE | 2022-04-13 13:31 | NUR ---
Initial: Pt presented with c/o SOB and admit for right sided pleural effusion, s/p thoracentesis with 4.4 L fluid removed and paracentesis in ER with 7.3 L fluid removed per H&P. Pt s/p additional paracentesis 04/12 with 7.3 L fluid removed per EMR. Per MD progress note pt with EtOH cirrhosis with ascites, transaminitis, A.fib, hepatic encephalopathy, and hypoalbuminemia secondary to liver disease. Overall pt eating poorly, documented with average 30% PO intake since admit not meeting estimated nutrient needs. Noted PO intake up to 75% at breakfast this morning which is a significant improvement. Given poor PO intake since admit and increased protein needs r/t ESLD pt would benefit from ONS to optimize nutrient intake, pending physician approval in EMR. Pt continues receiving routine Thiamine, Folic acid, and MVI d/t EtOH hx as well as routine Lactulose with elevated NH3 on admit. LBM 04/11. Will continue to follow closely and monitor need for further nutrition intervention. Recommendations: 1) Continue heart healthy diet; liberalize to regular diet if PO intake of meals remains poor 2) Ensure Enlive TID, pending physician approval in EMR 3) Continue routine Thiamine, Folic acid, and MVI for EtOH hx with elevated MCV 4) Routine bowel care 5) Daily scaled weights per rx Addendum: 04/13/22 at [address] Amended: Links added.
[2022-04-13 15:33] VITALS: BP 105/52
[2022-04-13 18:00] VITALS: BP 102/45
--- NOTE | 2022-04-13 18:05 | NUR ---
Problems reprioritized. Patient report given, questions answered & plan of care reviewed with Mona LEMUS, patient stable at transfer of care.
[2022-04-13] MEDS: CefTRIAXone/D5W-Rocephin 1gm 50 ML IV SCH (19:29)
[2022-04-13] MEDS: HYDROcodone/acetaminophen 10/325mg tab PO PRN (19:37)
[2022-04-13 22:00] VITALS: BP 97/50
[2022-04-14] MEDS: lactulose 20gm/30ml cup PO SCH ×4 (02:00→20:53)
[2022-04-14 06:00] VITALS: BP 111/61
--- NOTE | 2022-04-14 06:07 | NUR ---
Patient in room PCU 3012. I have received report from Mona LEMUS and had the opportunity to ask questions and assume patient care.
[2022-04-14 07:51] LABS: MAGNESIUM 1.8 MG/DL (1.5-2.4); POTASSIUM 3.8 MMOL/L (3.5-5.1)
[2022-04-14] MEDS: lactose-reduced food (Ensure Enlive) - 237ml bottle PO SCH ×3 (08:00→18:00)
[2022-04-14] MEDS: K and/or MAG REPLACEMENT MC SCH ×2 (08:00→19:59)
[2022-04-14] MEDS: albumin (human) 25% 100ml IV 100 ML IV SCH ×2 (09:06→20:52)
[2022-04-14] MEDS: docusate sod 100mg capsule PO SCH ×2 (09:06→20:53)
[2022-04-14] MEDS: folic acid 1mg tablet PO SCH (09:07)
[2022-04-14] MEDS: thiamine 100mg tablet PO SCH ×2 (09:07→20:53)
[2022-04-14] MEDS: multivitamins, therapeutics tablet PO SCH (09:07)
[2022-04-14] MEDS: HYDROcodone/acetaminophen 10/325mg tab PO PRN ×2 (09:07→17:55)
[2022-04-14 11:32] VITALS: BP 110/48
[2022-04-14] MEDS: albuterol 2.5 MG/3 ML nebule NEB PRN (11:49)
[2022-04-14 15:38] VITALS: BP 124/43
[2022-04-14 18:00] VITALS: BP 153/63
--- NOTE | 2022-04-14 18:49 | NUR ---
Problems reprioritized. Patient report given, questions answered & plan of care reviewed with Sarah LEMUS, patient stable at transfer of care.
[2022-04-14] MEDS: CefTRIAXone/D5W-Rocephin 1gm 50 ML IV SCH (20:52)
[2022-04-14 22:00] VITALS: BP 143/62
[2022-04-15] VITALS (7 sets, daily range): BP systolic 95–145; BP diastolic 28–61
[2022-04-15] MEDS: lactulose 20gm/30ml cup PO SCH ×5 (01:48→20:30)
[2022-04-15] MEDS: HYDROcodone/acetaminophen 10/325mg tab PO PRN ×4 (01:49→20:32)
--- NOTE | 2022-04-15 06:15 | NUR ---
Patient in room PCU 3012. I have received report from Sarah LEMUS and had the opportunity to ask questions and assume patient care.
[2022-04-15 06:48] LABS: BASOPHILS % (AUTO) 0.3 % (0-1); EOSINOPHILS % (AUTO) 1.1 % (0-6); HEMATOCRIT 25.3 % (42.0-52.0); HEMOGLOBIN 8.4 g/dl (14.0-17.9); LYMPHOCYTES # (AUTO) 0.5 X10'3 (1.1-4.8); LYMPHOCYTES % (AUTO) 12.1 % (21-51); MEAN CORPUSCULAR HEMOGLOBIN 35.8 PG (27.0-31.0); MEAN CORPUSCULAR HGB CONC 33.1 g/dL (33.0-36.5); MEAN CORPUSCULAR VOLUME 108.2 FL (78-98); MEAN PLATELET VOLUME 7.9 FL (7.4-10.4); MONOCYTES # (AUTO) 0.7 X10'3 (0-0.9); MONOCYTES % (AUTO) 17.5 % (2-12); NEUTROPHILS # (AUTO) 2.7 X10'3 (1.8-7.7); PLATELET COUNT 86 X10'3 (140-440); RED BLOOD COUNT 2.34 X10'6 (4.70-6.10); RED CELL DISTRIBUTION WIDTH 17.4 % (11.5-14.5); WHITE BLOOD COUNT 3.9 X10'3 (4.5-11.0)
[2022-04-15 07:48] LABS: TOTAL CELLS COUNTED 100
[2022-04-15 07:49] LABS: ANISOCYTOSIS 1+; PLATELET ESTIMATE DECREASED
[2022-04-15 07:59] LABS: ALANINE AMINOTRANSFERASE 17 U/L (12-78); ALBUMIN 3.3 G/DL (3.4-5.0); ALKALINE PHOSPHATASE 82 IU/L (46-116); ANION GAP 17 (8-16); ASPARTATE AMINO TRANSFERASE 101 U/L (10-37); BILIRUBIN,TOTAL 4.6 MG/DL (0.1-1.0); BLOOD UREA NITROGEN 42 MG/DL (7-18); BUN/CREATININE RATIO 23.1 (5.4-32.0); CALCIUM 9.2 MG/DL (8.5-10.1); CHLORIDE 95 MMOL/L (99-107); CREATININE 1.82 MG/DL (0.60-1.10); GLUCOSE 111 MG/DL (70-104); SODIUM 133 MMOL/L (135-145); TOTAL CARBON DIOXIDE 20.9 MMOL/L (24-32); eGFR 38 ML/MIN
[2022-04-15 08:00] LABS: ALBUMIN/GLOBULIN RATIO 1.1 (1.1-1.5); POTASSIUM 4.9 MMOL/L (3.5-5.1); TOTAL PROTEIN 6.4 G/DL (6.4-8.2)
[2022-04-15] MEDS: lactose-reduced food (Ensure Enlive) - 237ml bottle PO SCH (08:00)
[2022-04-15] MEDS: K and/or MAG REPLACEMENT MC SCH ×2 (08:00→20:00)
[2022-04-15] MEDS: thiamine 100mg tablet PO SCH ×2 (08:25→20:30)
[2022-04-15] MEDS: docusate sod 100mg capsule PO SCH ×2 (08:25→20:00)
[2022-04-15] MEDS: multivitamins, therapeutics tablet PO SCH (08:25)
[2022-04-15] MEDS: folic acid 1mg tablet PO SCH (08:25)
[2022-04-15] MEDS: albumin (human) 25% 100ml IV 100 ML IV SCH ×2 (08:26→20:31)
[2022-04-15] MEDS: spironolactone 50 MG tablet PO SCH (10:50)
[2022-04-15] MEDS: furosemide 40mg tablet PO SCH (10:50)
[2022-04-15 13:40] LABS: LIPASE 76 U/L (73-393)
--- NOTE | 2022-04-15 18:47 | NUR ---
Problems reprioritized. Patient report given, questions answered & plan of care reviewed with Ciera LEMUS, patient stable at transfer of care.
[2022-04-15] MEDS: CefTRIAXone/D5W-Rocephin 1gm 50 ML IV SCH (20:47)
[2022-04-16] MEDS: lactulose 20gm/30ml cup PO SCH ×4 (01:38→23:29)
[2022-04-16 02:11] VITALS: BP 96/40
--- NOTE | 2022-04-16 06:20 | NUR ---
reported to days. noted pt resting, call light in reach. has not spilled urinal this noc. continue to monitor for discharge needs.
--- NOTE | 2022-04-16 06:30 | NUR ---
Patient in room PCU 3012. I have received report from Scott LEMUS and had the opportunity to ask questions and assume patient care. Will follow care of PT with Elgin ASHRAF. Bedside report completed. PT sleping. No distress, Call light in reach. Addendum: 04/16/22 at 0652 by Fabi Powell RN Amended: Links added.
--- NOTE | 2022-04-16 06:47 | NUR ---
Patient in room PCU 3889S I have received report from Scott LEMUS and had the opportunity to ask questions and assume patient care. Bed side report given. Call light within reach. Patient in no distress. Patient is right side lying. Addendum: 04/16/22 at 0648 by Elgin Amador LVN Amended: Links added.
[2022-04-16 07:12] LABS: BASOPHILS % (AUTO) 0.9 % (0-1); EOSINOPHILS % (AUTO) 1.7 % (0-6); HEMATOCRIT 24.1 % (42.0-52.0); HEMOGLOBIN 8.3 g/dl (14.0-17.9); LYMPHOCYTES # (AUTO) 0.4 X10'3 (1.1-4.8); LYMPHOCYTES % (AUTO) 15.4 % (21-51); MEAN CORPUSCULAR HEMOGLOBIN 35.7 PG (27.0-31.0); MEAN CORPUSCULAR HGB CONC 34.4 g/dL (33.0-36.5); MEAN CORPUSCULAR VOLUME 103.9 FL (78-98); MEAN PLATELET VOLUME 7.9 FL (7.4-10.4); MONOCYTES # (AUTO) 0.6 X10'3 (0-0.9); MONOCYTES % (AUTO) 21.1 % (2-12); NEUTROPHILS # (AUTO) 1.7 X10'3 (1.8-7.7); NEUTROPHILS % (AUTO) 60.9 % (42-75); PLATELET COUNT 82 X10'3 (140-440); RED BLOOD COUNT 2.32 X10'6 (4.70-6.10); RED CELL DISTRIBUTION WIDTH 16.4 % (11.5-14.5); WHITE BLOOD COUNT 2.8 X10'3 (4.5-11.0)
[2022-04-16 07:26] VITALS: BP 110/56
[2022-04-16 07:36] LABS: ALANINE AMINOTRANSFERASE 27 U/L (12-78); ALBUMIN 3.3 G/DL (3.4-5.0); ALKALINE PHOSPHATASE 76 IU/L (46-116); ANION GAP 11 (8-16); ASPARTATE AMINO TRANSFERASE 71 U/L (10-37); BILIRUBIN,TOTAL 4.1 MG/DL (0.1-1.0); BLOOD UREA NITROGEN 40 MG/DL (7-18); BUN/CREATININE RATIO 23.3 (5.4-32.0); CHLORIDE 95 MMOL/L (99-107); CREATININE 1.72 MG/DL (0.60-1.10); GLUCOSE 112 MG/DL (70-104); POTASSIUM 4.4 MMOL/L (3.5-5.1); SODIUM 131 MMOL/L (135-145); TOTAL CARBON DIOXIDE 25.1 MMOL/L (24-32); eGFR 40 ML/MIN
[2022-04-16 07:38] LABS: ALBUMIN/GLOBULIN RATIO 1.2 (1.1-1.5); TOTAL PROTEIN 6.1 G/DL (6.4-8.2)
[2022-04-16] MEDS: albumin (human) 25% 100ml IV 100 ML IV SCH ×2 (07:46→20:00)
[2022-04-16] MEDS: multivitamins, therapeutics tablet PO SCH (07:47)
[2022-04-16] MEDS: HYDROcodone/acetaminophen 10/325mg tab PO PRN ×2 (07:47→15:00)
[2022-04-16] MEDS: spironolactone 50 MG tablet PO SCH (07:48)
[2022-04-16] MEDS: thiamine 100mg tablet PO SCH (07:48)
[2022-04-16] MEDS: folic acid 1mg tablet PO SCH (07:48)
[2022-04-16] MEDS: docusate sod 100mg capsule PO SCH ×2 (07:48→20:00)
[2022-04-16] MEDS: furosemide 40mg tablet PO SCH (07:48)
--- NOTE | 2022-04-16 07:55 | NUR ---
Patient request breathing tx. RT notified.
[2022-04-16] MEDS: K and/or MAG REPLACEMENT MC SCH ×2 (08:00→20:00)
[2022-04-16] MEDS: albuterol 2.5 MG/3 ML nebule NEB PRN ×2 (08:27→13:01)
[2022-04-16 09:16] LABS: TOTAL CELLS COUNTED 100
[2022-04-16 09:17] LABS: ANISOCYTOSIS 1+; BURR CELLS FEW; PLATELET ESTIMATE DECREASED; SCHISTOCYTES FEW
--- NOTE | 2022-04-16 09:46 | NUR ---
F/u 04/16: Pt PO remains poor ~25% mostly this admit w/ brief improvement 75-100% 04/13-04/14 however now regressed to 25% yesterday not meeting needs. Ensure Enlive ONS pending physician verification in EMR; TATE d/w RN regarding physician approval prior to being able to send ONS. RN to notify DO. Vivek TIDWM sent in meantime until ONS verified; dietary notified. LBM 04/15 receiving routine colace and lactulose. IF poor PO persists without ONS intake pt will remain high risk for malnutrition. Will monitor for further nutrition intervention needs this admit. Recommendations: 1) Continue heart healthy diet; liberalize to regular diet if PO intake of meals remains poor 2) Ensure Enlive TID, pending physician approval in EMR 3) Continue routine Thiamine, Folic acid, and MVI for EtOH hx with elevated MCV 4) Routine bowel care 5) Daily scaled weights Addendum: 04/16/22 at [address] Amended: Links added.
[2022-04-16] MEDS ORDERED: LORazepam 2 mg/ml vial IV PRN (12:20)
[2022-04-16] MEDS ORDERED: morphine oral 20mg/ml (conc. morphine) 1ml oral syringe PO PRN (12:20)
--- NOTE | 2022-04-16 12:41 | NUR ---
Patient request breathing tx. RT notified.
--- NOTE | 2022-04-16 12:41 | NUR ---
Pt placed on DNR comfort measures. 2 nurses verified. Wrist band placed on patient
--- NOTE | 2022-04-16 13:41 | NUR ---
F/u 04/16: Noted pt now DMR w/ comfort care remains on heart healthy diet per EMR. Dietary notified to honor pt/family meal requests regardless of diet order given comfort measures. Will continue to follow. Recommendations: 1) honor pt/family meal requests on comfort measures 2) bowel care per rx Addendum: 04/16/22 at [address] Amended: Links added.
[2022-04-16 15:06] VITALS: BP 103/58
[2022-04-16 18:00] VITALS: BP 95/62
--- NOTE | 2022-04-16 18:04 | NUR ---
I have reviewed and agree with all interventions, assessments performed and documented by Elgin ASHRAF. Addendum: 04/16/22 at 1804 by Fabi Powell RN Amended: Links added.
--- NOTE | 2022-04-16 18:16 | NUR ---
Problems reprioritized. Patient report given, questions answered & plan of care reviewed with Clarisse ASHRAF. Bedside report given. Patient awake and alert sitting on recliner. No distress noted. Addendum: 04/16/22 at 1817 by Elgin Amador LVN Amended: Links added.
--- NOTE | 2022-04-16 18:20 | NUR ---
Patient in room PCU 3012. I have received report from Elgin LEMUS and had the opportunity to ask questions and assume patient care.
[2022-04-16] MEDS: morphine 10mg/0.5ml (conc. morphine) oral syringe PO PRN (23:29)
[2022-04-17] MEDS: lactulose 20gm/30ml cup PO SCH ×4 (02:00→20:00)
[2022-04-17] MEDS: morphine 10mg/0.5ml (conc. morphine) oral syringe PO PRN ×5 (03:56→17:09)
--- NOTE | 2022-04-17 04:22 | NUR ---
Reviewed Physical Assessment w/Clarisse CONTRACTS REPRESENTATIVE and I agree w/documentation f/NOC shift.
--- NOTE | 2022-04-17 06:10 | NUR ---
Patient in room PCU 3012B. I have received report from Valeria ASHRAF and had the opportunity to ask questions and assume patient care.Will follow care of pt with Elgin ASHRAF. Addendum: 04/17/22 at 0642 by Fabi Powell RN Amended: Links added.
--- NOTE | 2022-04-17 06:36 | NUR ---
Patient in room U 3012. I have received report from Valeria ASHRAF and had the opportunity to ask questions and assume patient care. Bed side report given. Patient is sitting in recliner adjacent to hospital bed, patient prefers to remain in hospital recliner. Multi Spindle Operator educated patient on repositioning self every 2 hours for pressure relief comfort, patient verbalized understanding, will need reinforcement. Patient using urinal, verbalized today's goals of pain and sob managment, he verbalized understanding. Call light within reach. Addendum: 04/17/22 at 0638 by Elgin Amador LVN Amended: Links added.
[2022-04-17] MEDS: docusate sod 100mg capsule PO SCH ×2 (07:06→20:00)
[2022-04-17] MEDS: furosemide 40mg tablet PO SCH (07:06)
[2022-04-17 07:33] VITALS: BP 115/55
[2022-04-17] MEDS: spironolactone 50 MG tablet PO SCH (07:35)
[2022-04-17] MEDS: albumin (human) 25% 100ml IV 100 ML IV SCH ×2 (07:36→20:00)
[2022-04-17] MEDS: K and/or MAG REPLACEMENT MC SCH ×2 (08:00→20:00)
[2022-04-17] MEDS: albuterol 2.5 MG/3 ML nebule NEB PRN (08:48)
--- NOTE | 2022-04-17 18:02 | NUR ---
I have reviewed and agree with all interventions, assessments performed and documented by Elgin ASHRAF. Addendum: 04/17/22 at 1803 by Fabi Powell RN Amended: Links added.
--- NOTE | 2022-04-17 18:16 | NUR ---
Problems reprioritized. Patient report given, questions answered & plan of care reviewed with Valeria ASHRAF. Bedside report given. Call light within reach. Addendum: 04/17/22 at 1816 by Elgin Amador LVN Amended: Links added.
--- NOTE | 2022-04-17 18:30 | NUR ---
Patient in room PCU 3012. I have received report from Elgin ASHRAF and had the opportunity to ask questions and assume patient care.
--- NOTE | 2022-04-17 20:30 | NUR ---
SCLERA JAUNDICED Addendum: 04/18/22 at 0334 by Rose Marie Jorge RN Amended: Links added.
[2022-04-18] MEDS: lactulose 20gm/30ml cup PO SCH ×4 (02:00→20:41)
--- NOTE | 2022-04-18 03:34 | NUR ---
AGREE WITH MELANI ASHRAF ASSESSMENT EXCEPT WHERE I DOCUMENTED MY ASSESSMENT FINDINGS
[2022-04-18 06:00] VITALS: BP 102/52
--- NOTE | 2022-04-18 06:12 | NUR ---
Problems reprioritized. Patient report given, questions answered & plan of care reviewed with Claire Rodríguez LVN.
[2022-04-18] MEDS: docusate sod 100mg capsule PO SCH ×2 (07:48→20:00)
[2022-04-18] MEDS: spironolactone 50 MG tablet PO SCH (07:48)
[2022-04-18] MEDS: furosemide 40mg tablet PO SCH (07:48)
[2022-04-18] MEDS: morphine 10mg/0.5ml (conc. morphine) oral syringe PO PRN ×7 (07:50→23:39)
[2022-04-18] MEDS: albumin (human) 25% 100ml IV 100 ML IV SCH (09:06)
[2022-04-18] MEDS: HYDROcodone/acetaminophen 10/325mg tab PO PRN (09:46)
[2022-04-18 15:00] VITALS: BP 112/50
[2022-04-18] MEDS ORDERED: ondansetron 4mg rapidly disintigrating tab PO PRN (15:55)
--- NOTE | 2022-04-18 17:28 | NUR ---
AGREE WITH PARTS ROOM ASSOCIATE ASSESSMENT
[2022-04-18 22:00] VITALS: BP 114/62
[2022-04-19] MEDS: lactulose 20gm/30ml cup PO SCH ×4 (02:00→19:31)
[2022-04-19] MEDS: morphine 10mg/0.5ml (conc. morphine) oral syringe PO PRN ×4 (03:01→17:41)
--- NOTE | 2022-04-19 06:37 | NUR ---
Problems reprioritized. Patient report given, questions answered & plan of care reviewed with ALLAN CRYSTAL.
[2022-04-19] MEDS: docusate sod 100mg capsule PO SCH ×2 (08:00→19:31)
[2022-04-19] MEDS: furosemide 40mg tablet PO SCH (08:00)
[2022-04-19] MEDS: spironolactone 50 MG tablet PO SCH (08:30)
--- NOTE | 2022-04-19 18:03 | NUR ---
AGREE WITH PROTOTYPE SEWER ASSESSMENT
--- NOTE | 2022-04-19 18:30 | NUR ---
Patient in room PCU 3010. I have received report from hakeem and had the opportunity to ask questions and assume patient care.
[2022-04-20] MEDS: lactulose 20gm/30ml cup PO SCH ×4 (01:58→20:00)
[2022-04-20 06:00] VITALS: BP 108/54
--- NOTE | 2022-04-20 06:34 | NUR ---
Patient in room PCU 3010. I have received report from Obinna ASHRAF and had the opportunity to ask questions and assume patient care.
--- NOTE | 2022-04-20 06:45 | NUR ---
checked on patient and seemed to be in pain. Patient was groaning in agony. Patient was trying to get out of bed. I gave patient Roxanol per MD orders.
[2022-04-20] MEDS: morphine 10mg/0.5ml (conc. morphine) oral syringe PO PRN ×7 (07:01→20:22)
[2022-04-20] MEDS: docusate sod 100mg capsule PO SCH ×2 (08:00→20:00)
[2022-04-20] MEDS: furosemide 40mg tablet PO SCH (08:00)
[2022-04-20] MEDS: spironolactone 50 MG tablet PO SCH (08:30)
--- NOTE | 2022-04-20 10:09 | NUR ---
patient is grimacing and groaning. Roxanol given
--- NOTE | 2022-04-20 11:19 | NUR ---
Patient friend Gavin stopped by to check on patient. Gavin stated that he spoke with patient ex- and son Stef, they both are done. I asked to confirm statement. Gavin stated that they no longer want anything to do with patient, they don't want part of patient end of life, they said their goodbyes. Gavin asked that we call him if there is a change.
--- NOTE | 2022-04-20 12:06 | NUR ---
checked on patient and patient is groaning and appears to be in pain. Roxanol given
--- NOTE | 2022-04-20 14:28 | NUR ---
Checked on patient and is moaning and seems to be in pain. Roxanol given. Patient lungs sound diminished and wet. Heart sounds has a wosh sound. respirations dropped to 9 per minute.
--- NOTE | 2022-04-20 16:31 | NUR ---
FINISH OPENER documentation: I have reviewed and agree with all interventions, assessments performed and documented by ANDRIY LLOYD.
--- NOTE | 2022-04-20 16:32 | NUR ---
ANDRIY Medication Administration: For this medication-pass time frame, all medication were reviewed, dispensed, administered and documented per hospital policy by ANDRIY LLOYD.
--- NOTE | 2022-04-20 16:57 | NUR ---
Patient is painful, breathing is swallow and gurgling present. Roxanol given, HOB elevated and 02 decreased 1.5L. Friend at bedside.
--- NOTE | 2022-04-20 18:23 | NUR ---
Problems reprioritized. Patient report given, questions answered & plan of care reviewed with Cassi RN and Stephany RN.
[2022-04-20 19:48] VITALS: BP 122/51
--- NOTE | 2022-04-20 20:00 | NUR ---
agree with Cassi CONTRACTOR FIELD HAULING physical assessment.
[2022-04-20] MEDS: LORazepam 0.5 MG tablet PO PRN (20:22)
[2022-04-20] MEDS: hyoscyamine 0.125mg TAB.SUBL SL PRN (20:22)
[2022-04-21] MEDS: morphine 10mg/0.5ml (conc. morphine) oral syringe PO PRN ×12 (00:07→23:30)
[2022-04-21] MEDS: lactulose 20gm/30ml cup PO SCH ×4 (02:00→20:00)
[2022-04-21 06:00] VITALS: BP 95/40
[2022-04-21] MEDS: hyoscyamine 0.125mg TAB.SUBL SL PRN ×3 (06:12→21:40)
--- NOTE | 2022-04-21 06:15 | NUR ---
Patient in room PCU 3010. I have received report from Cassi and Stephany LEMUS and had the opportunity to ask questions and assume patient care.
[2022-04-21] MEDS: furosemide 40mg tablet PO SCH (08:00)
[2022-04-21] MEDS: docusate sod 100mg capsule PO SCH ×2 (08:00→20:00)
[2022-04-21] MEDS: spironolactone 50 MG tablet PO SCH (08:30)
--- NOTE | 2022-04-21 09:12 | NUR ---
patient is moaning and grimacing. Seems to be painful. Roxanol given
--- NOTE | 2022-04-21 09:44 | NUR ---
Reassessment: Pt remains DNR with comfort care. PO intake fluctuates, documented with 50-100% PO intake and meal refusals though documented to be NPO at dinner /, possibly r/t being obtunded (per EMR). Recommend liberalizing to regular diet if pt to continue with PO diet in view of code status. Noted pt with a low John of 9, skin intact per WOC note. LBM 04/18, with routine bowel care available though no PO meds given this morning per EMR. Will continue to follow per LOS. Recommendations: 1) [place] pt/family meal requests on comfort measures 2) Bowel care per comfort care measures Addendum: 04/21/22 at [address] Amended: Links added.
[2022-04-21 12:30] VITALS: BP_SYST 166; BP_SYST 91; BP_DIAS 36; BP_DIAS 94
[2022-04-21] MEDS: lactose-reduced food (Ensure Enlive) - 237ml bottle PO SCH (17:13)
--- NOTE | 2022-04-21 18:43 | NUR ---
Problems reprioritized. Patient report given, questions answered & plan of care reviewed with misti and Stephany RN.
[2022-04-21 19:41] VITALS: BP 100/31
--- NOTE | 2022-04-21 20:00 | NUR ---
agree with Cassi MARKETING DEVELOPMENT SPECIALIST physical assessment.
[2022-04-21] MEDS: LORazepam 0.5 MG tablet PO PRN (23:30)
[2022-04-22] MEDS: morphine 10mg/0.5ml (conc. morphine) oral syringe PO PRN ×11 (01:35→21:15)
[2022-04-22] MEDS: lactulose 20gm/30ml cup PO SCH ×4 (02:00→20:00)
[2022-04-22] MEDS: LORazepam 0.5 MG tablet PO PRN (03:31)
[2022-04-22] MEDS: hyoscyamine 0.125mg TAB.SUBL SL PRN (03:55)
[2022-04-22 06:00] VITALS: BP 101/45
[2022-04-22] MEDS: spironolactone 50 MG tablet PO SCH (06:47)
[2022-04-22] MEDS: docusate sod 100mg capsule PO SCH ×2 (06:47→20:00)
[2022-04-22] MEDS: furosemide 40mg tablet PO SCH (06:47)
[2022-04-22 10:46] VITALS: BP 113/53
[2022-04-23] MEDS: morphine 10mg/0.5ml (conc. morphine) oral syringe PO PRN ×2 (00:08→02:54)
[2022-04-23] MEDS: lactulose 20gm/30ml cup PO SCH (01:14)
[2022-04-23 04:02] VITALS: BP 0/0
--- NOTE | 2022-04-23 07:05 | NUR ---
BODY GOT PICKED UP BY [employer]ORTU[employer] AT 0650. BELONGINGS SENT WITH THE BODY.
== END 2022-04-23 06:45 | DRG 280 ==
LOC: ER 12:17 → ED HOLD 04-08 00:34 → PCU 3S 04-08 07:58
PROVIDERS: ADMIT Internal Medicine; ATTEND Family Medicine
PROC: 0W993ZZ Drainage of Right Pleural Cavity, Percutaneous Approach (ICD-10-PCS; 2022-04-07)
PROC: 0W9G3ZZ Drainage of Peritoneal Cavity, Percutaneous Approach (ICD-10-PCS; 2022-04-07)
PROC: CF1C1ZZ Planar Nuclear Medicine Imaging of Hepatobiliary System, All using Technetium 99m (Tc-99m) (ICD-10-PCS; 2022-04-10)
PROC: 0W9G3ZZ Drainage of Peritoneal Cavity, Percutaneous Approach (ICD-10-PCS; principal; 2022-04-12)
DX: K76.82 Hepatic encephalopathy (principal); K70.31 Alcoholic cirrhosis of liver with ascites; J90 Pleural effusion, not elsewhere classified; D68.4 Acquired coagulation factor deficiency; N17.9 Acute kidney failure, unspecified; K72.10 Chronic hepatic failure without coma; E88.09 Other disorders of plasma-protein metabolism, not elsewhere classified; Z66 Do not resuscitate; Z51.5 Encounter for palliative care; K76.6 Portal hypertension; I12.9 Hypertensive chronic kidney disease with stage 1 through stage 4 chronic kidney disease, or unspecified chronic kidney disease; I46.9 Cardiac arrest, cause unspecified; N18.30 Chronic kidney disease, stage 3 unspecified; D69.59 Other secondary thrombocytopenia; B96.20 Unspecified Escherichia coli [E. coli] as the cause of diseases classified elsewhere; F17.210 Nicotine dependence, cigarettes, uncomplicated; F12.90 Cannabis use, unspecified, uncomplicated; I48.91 Unspecified atrial fibrillation; N39.0 Urinary tract infection, site not specified; K21.9 Gastro-esophageal reflux disease without esophagitis; R14.0 Abdominal distension (gaseous); K70.11 Alcoholic hepatitis with ascites; J44.9 Chronic obstructive pulmonary disease, unspecified; Z59.00 Homelessness unspecified
CPT/HCPCS: 36415; 49083; 71045; 71250; 74176; 76700; 78227; 80053; 80061; 80074; 81001; 82042; 82140; 82465; 82607; 82728; 82945; 82948; 83540; 83550; 83605; 83615; 83690; 83735; 83880; 83986; 84132; 84145; 84157; 84443; 84484; 85007; 85025; 85610; 85730; 87015; 87040; 87070; 87077; 87081; 87088; 87186; 89051; 93005; 93306; 94640; 94760; 97116; 97161; 97530; 99285; A4615; A6258; A9537; G0378; J0696; J1940; J2805; J3490; J7040; P9047